=== PATIENT | female | born 1995 | race Hispanic/Latino ===

== ENCOUNTER 2016-07-10 15:32 | Emergency (ER) | payer MEDICAID ==
[2016-07-10 15:57] VITALS: TEMP 98
[2016-07-10] MEDS ORDERED: Sodium Chloride 0.9% 1,000 ML IV ONE (16:23)
[2016-07-10] MEDS ORDERED: Sodium Chloride 0.9% 1,000 ML ONE (16:46)
[2016-07-10 17:21] LABS: RBC URINE 7442 /hpf (0-3); URINE BACTERIA RARE (<OCC); URINE BILIRUBIN NEGATIVE (NEGATIVE); URINE BLOOD 3+ (NEGATIVE); URINE COLOR Amber (YELLOW); URINE GLUCOSE (UA) NORMAL (Normal); URINE KETONE 1+ mg/dL (NEGATIVE); URINE LEUKOCYTE ESTERASE 1+ Leu/uL (Negative); URINE PROTEIN 2+ mg/dL (NEGATIVE); URINE UROBILINOGEN NORMAL mg/dL (0.2-1.0); WBC URINE 12 /hpf (0-5)
[2016-07-10 17:25] LABS: BASO # 0.1 K/uL (0.0-0.2); BASO % 0.8 % (0.0-2.0); EOS # 0.1 K/uL (0.0-0.7); EOS % 1.3 % (0.0-4.0); HEMATOCRIT 36.7 % (34.0-47.0); LYMPH # 3.3 K/uL (1.0-4.3); LYMPH % 36.5 % (20.0-40.0); MEAN CELL VOLUME 70.7 fL (81.0-99.0); MEAN CORPUSCULAR HEMOGLOBIN 22.5 pg (27.0-31.0); MEAN CORPUSCULAR HGB CONC 31.8 g/dL (33.0-37.0); MEAN PLATELET VOLUME 10.1 fL (7.2-11.7); MONO # 0.6 K/uL (0.0-0.8); MONO % 6.9 % (0.0-10.0); RED CELL DISTRIBUTION WIDTH 16.7 % (11.5-14.5)
[2016-07-10 17:32] LABS: INR 1.1
--- NOTE | 2016-07-10 18:02 | C.PDOC ---
History Of Present Illness Pt is a 21 yr old female with PMHx of obesity and asthma, with a gastric sleeve placement in February 2016, presents to the ED with complaints of LUQ pain for 1 day. Patient states "it feels like there is a bump" in her LUQ of her abdomen. Patient states the pain is constant and feels like pressure. Patient denies fever, chills, chest pain, SOB, nausea, vomiting, diarrhea, dysuria, incontinence, weakness or numbness. Her gastric sleeve surgery was not done in the [facility] system. PMD: Dr. En Almanza Time Seen by Provider: 07/10/16 16:12 Chief Complaint (Nursing): Abdominal Pain History Per: Patient History/Exam Limitations: no limitations Onset/Duration Of Symptoms: Days (1), Persistent Current Symptoms Are (Timing): Still Present Location Of Pain/Discomfort: LUQ Past Medical History Reviewed: Historical Data, Nursing Documentation, Vital Signs Vital Signs: Last Vital Signs Temp 98 F 07/10/16 19:07 Pulse 61 07/10/16 19:07 Resp 20 07/10/16 19:07 BP 115/79 07/10/16 19:07 Pulse Ox 98 07/10/16 19:07 - Medical History PMH: Anemia, Asthma, HTN, Hypercholesterolemia, Pancreatitis Other PMH: Obesity - [facility] Procedures APPLICATION OF SPLINT (09/06/14) Family History: States: Diabetes - Social History Hx Tobacco Use: Yes Hx Alcohol Use: No Hx Substance Use: No - Immunization History Hx Tetanus Toxoid Vaccination: No Hx Influenza Vaccination: Yes Hx Pneumococcal Vaccination: No Review Of Systems Except As Marked, All Systems Reviewed And Found Negative. Constitutional: Negative for: Fever, Chills Cardiovascular: Negative for: Chest Pain Respiratory: Negative for: Shortness of Breath Gastrointestinal: Positive for: Abdominal Pain (LUQ). Negative for: Nausea, Vomiting, Diarrhea Genitourinary: Negative for: Dysuria, Incontinence Neurological: Negative for: Weakness, Numbness Physical Exam - Physical Exam Appears: Well, Non-toxic, No Acute Distress Skin: Warm, Dry, No Rash Head: Atraumatic, Normacephalic Eye(s): bilateral: Normal Inspection, EOMI Ear(s): Bilateral: Normal Nose: Normal Oral Mucosa: Moist Tongue: Normal Appearing Lips: Normal Appearing Teeth: Normal Dentition Throat: Normal Neck: Normal, Normal ROM, Supple Chest: Symmetrical, No Tenderness Cardiovascular: Rhythm Regular, No Murmur Respiratory: Normal Breath Sounds, No Rales, No Rhonchi, No Stridor, No Wheezing Gastrointestinal/Abdominal: Bowel Sounds, Soft, Tenderness (Mild LUQ tenderness) , No Guarding, No Rebound Extremity: Normal ROM, No Swelling Neurological/Psych: Oriented x3, Normal Speech, Normal Motor ED Course And Treatment - Laboratory Results Result Diagrams: 07/10/16 17:12 07/10/16 17:12 O2 Sat by Pulse Oximetry: 100 - CT Scan/US CT - Bariatric Chest Other Rad Studies (CT/US): Read By Radiologist, Radiology Report Reviewed CT/US Interpretation: PROCEDURE: CT Chest without contrast. HISTORY: LUQ pain ; please assess gastric band. COMPARISON: None. TECHNIQUE: Contiguous axial images were obtained through the chest without intravenous contrast enhancement. Sagittal and coronal reconstructions were performed. . Radiation dose (DLP): 515 mGy-cm. This CT exam was performed using one or more of the following dose reduction techniques: Automated exposure control, adjustment of the mA and/or kV according to patient size, and/or use of iterative reconstruction technique. FINDINGS: LUNGS: Clear lungs. Visualized airway clear. MEDIASTINUM: Unremarkable thoracic aorta. No aneurysm. Normal sized heart. Main pulmonary artery unremarkable. No vascular congestion. No lymphadenopathy. PLEURA: No pleural fluid. No pneumothorax. BONES: No fracture. No destructive lesion. UPPER ABDOMEN: The esophagus is mildly dilated. A suture line is seen along greater curvature of the stomach most consistent with a gastric sleeve type operation. There is no evidence of a lap band. There is no evidence of perforation. OTHER FINDINGS: None. IMPRESSION : No acute findings. No evidence of perforation Medical Decision Making Medical Decision Making: INITIAL IMPRESSION: Possible gastric sleeve complication/pathology INITIAL PLAN: * CT - Bariatric Chest to assess the gastric sleeve * CBC * HCG Urine * Urinalysis * Pepcid IVP * Sodium Chloride IV Progress note: 6:30 PM-CT shows no acute pathology. Pt feels better. Will d/c home. Disposition - Disposition Disposition: HOME/ ROUTINE Disposition Time: 18:52 Condition: IMPROVED Additional Instructions: Ms. Serrano, thank you for letting us take care of you today. Return to the ER if your symptoms worsen, or if any problems. Take the medication listed below as prescribed. Follow up with your bariatric surgeon this Thursday (as previously scheduled). Prescriptions: Ranitidine HCl [Zantac] 1 tab PO BID #40 tablet Instructions: Peptic Ulcer (ED) Forms: General Discharge Instructions Print Language: AMHARIC - POA Present On Arrival: None - Clinical Impression Clinical Impression: Abdominal wall pain - Scribe Statement The provider has reviewed the documentation as recorded by the Robson Rodriguez Provider Attestation: All medical record entries made by the Robson were at my direction and personally dictated by me. I have reviewed the chart and agree that the record accurately reflects my personal performance of the history, physical exam, medical decision making, and the department course for this patient. I have also personally directed, reviewed, and agree with the discharge instructions and disposition.
[2016-07-10 18:11] LABS: CHLORIDE 103 mmol/L (98-107)
[2016-07-10 18:12] LABS: SODIUM 140 mmol/L (132-148)
[2016-07-10 18:14] LABS: ALB/GLOB RATIO 1.4 (1.0-2.1); ALKALINE PHOSPHATASE 66 U/L (38-126); AST/SGOT 20 U/L (14-36); BILIRUBIN,TOTAL 1.1 mg/dL (0.2-1.3); BLOOD UREA NITROGEN 8 mg/dL (7-17); CARBON DIOXIDE 22 mmol/L (22-30); GFR AFRICAN-AMERICAN > 60; TOTAL PROTEIN 8.5 g/dL (6.3-8.3)
[2016-07-10 18:15] LABS: ALT/SGPT 13 U/L (9-52); CALCIUM 9.7 mg/dl (8.6-10.4); GLUCOSE,RANDOM 80 mg/dL (65-105)
--- NOTE | 2016-07-10 18:39 | CT ---
PROCEDURE: CT Chest without contrast HISTORY: LUQ pain; please assess gastric band COMPARISON: None. TECHNIQUE: Contiguous axial images were obtained through the chest without intravenous contrast enhancement. Sagittal and coronal reconstructions were performed. Radiation dose (DLP): 515 mGy-cm. This CT exam was performed using one or more of the following dose reduction techniques: Automated exposure control, adjustment of the mA and/or kV according to patient size, and/or use of iterative reconstruction technique. FINDINGS: LUNGS: Clear lungs. Visualized airway clear. MEDIASTINUM: Unremarkable thoracic aorta. No aneurysm. Normal sized heart. Main pulmonary artery unremarkable. No vascular congestion. No lymphadenopathy. PLEURA: No pleural fluid. No pneumothorax. BONES: No fracture. No destructive lesion. UPPER ABDOMEN: The esophagus is mildly dilated. A suture line is seen along greater curvature of the stomach most consistent with a gastric sleeve type operation. There is no evidence of a lap band. There is no evidence of perforation OTHER FINDINGS: None. IMPRESSION: No acute findings. No evidence of perforation
[2016-07-10 19:08] VITALS: BP 115/79; PULSE 61; RESP 20
[2016-07-16 17:56] VITALS: O2SAT 100
== END 2016-07-10 19:06 | disposition home or self-care (01) ==
LOC: C.ER 15:32
DX: R10.12 Left upper quadrant pain (principal)
CPT/HCPCS: 71250; 80053; 81001; 83690; 84703; 85025; 85610; 85730; 96374; 99284; J7040

== ENCOUNTER 2016-08-04 18:31 | Emergency (ER) | payer MEDICAID ==
[2016-08-04 18:42] VITALS: TEMP 98.1
--- NOTE | 2016-08-04 20:22 | C.PDOC ---
History Of Present Illness A 21 year old female presents to the emergency room with complaints of rashes to the bilateral arms, legs, and abdomen for the past week. Patient also notes intermittent hives. Patient reports that she has tried OTC cream with no relief. Patient denies any non-allergens, new products, or new medications. Patient denies shortness of breath, lip swelling, tongue swelling, difficulty swallowing, fever, nausea, vomiting, diarrhea, or any other complaints. Time Seen by Provider: 08/04/16 19:20 Chief Complaint (Nursing): Abnormal Skin Integrity History Per: Patient History/Exam Limitations: no limitations Onset/Duration Of Symptoms: Other (1 week) Current Symptoms Are (Timing): Still Present Location Of Injury: Right: Abdomen, Arm, Leg, Left: Abdomen, Arm, Leg Quality Of Symptoms: denies: Painful, Itching, Swollen Severity: Mild Recent travel outside of the [place]: No Past Medical History Reviewed: Historical Data, Nursing Documentation, Vital Signs Vital Signs: Last Vital Signs Temp 98.1 F 08/04/16 18:40 Pulse 71 08/04/16 20:23 Resp 18 08/04/16 20:23 BP 124/72 08/04/16 20:23 Pulse Ox 97 08/04/16 22:02 - Medical History PMH: Anemia, Asthma, HTN, Hypercholesterolemia, Pancreatitis Denies: Chronic Kidney Disease - [facility] Procedures APPLICATION OF SPLINT (09/06/14) Family History: States: Unknown Family Hx, Diabetes - Social History Hx Tobacco Use: Yes Hx Alcohol Use: No Hx Substance Use: No - Immunization History Hx Tetanus Toxoid Vaccination: No Hx Influenza Vaccination: Yes Hx Pneumococcal Vaccination: No Review Of Systems Except As Marked, All Systems Reviewed And Found Negative. Constitutional: Negative for: Fever, Chills ENT: Negative for: Throat Pain, Throat Swelling, Other (Difficulty swallowing; Lip swelling) Respiratory: Negative for: Shortness of Breath Gastrointestinal: Negative for: Nausea, Vomiting, Diarrhea Skin: Positive for: Rash (Bilateral arms, legs, and abdomen), Other ( Intermittent hives) Physical Exam - Physical Exam Appears: Well, Non-toxic Skin: Rash (Scattered patchy erythematous maculopapular rash to the inner upper arms, inner thighs, and left lower abdomen. Mild scattered hives.), No Other ( No vesicular lesions, warmth, or pustules.) Head: Normacephalic Eye(s): bilateral: Normal Inspection, PERRL, EOMI Ear(s): Bilateral: Normal Oral Mucosa: Moist, No Drooling Tongue: Normal Appearing, No Swelling Lips: Normal Appearing, No Swelling Throat: Normal, No Erythema, No Exudate Neck: Normal ROM, Supple Cardiovascular: Rhythm Regular Respiratory: Normal Breath Sounds, No Wheezing Extremity: Normal ROM Neurological/Psych: Oriented x3, Normal Speech, Normal Cognition Gait: Steady ED Course And Treatment O2 Sat by Pulse Oximetry: 97 Pulse Ox Interpretation: Normal Reassessment Condition: Improved (after meds, will follow up with PMD) Medical Decision Making Medical Decision Making: Impression: A 21 year old female with rashes to the bilateral arms, legs, and abdomen. Scattered patchy erythematous maculopapular rashes to the inner upper arms, inner thighs, and left lower abdomen noted on examination. Plan: -- Benadryl, Pepcid, & Prenisolone Progress Notes: Patient was given medications. On reevaluation, patient is resting comfortably, tolerating PO, has no shortness of breath, has no intra-oral swelling, no stridor. Patient notes that pruritus has improved. Patient was advised to avoid potential allergens, and to follow up with physician in 1-2 days. Disposition Counseled Patient/Family Regarding: Diagnosis, Need For Followup - Disposition Disposition: HOME/ ROUTINE Disposition Time: 20:24 Condition: STABLE Additional Instructions: Please follow up with PMD Take meds as directed Return to ER if worse Prescriptions: Cetirizine HCl [Zyrtec] 10 mg PO DAILY #20 capsule Famotidine [Pepcid] 20 mg PO DAILY #10 tab predniSONE [Prednisone] 40 mg PO DAILY #10 tab Instructions: Allergies (ED) Forms: Work Excuse - Clinical Impression Clinical Impression: Contact allergic reaction - Scribe Statement The provider has reviewed the documentation as recorded by the Robson Khalil Provider Scribe Attestation: All medical record entries made by the Janeneibyumiko were at my direction and personally dictated by me. I have reviewed the chart and agree that the record accurately reflects my personal performance of the history, physical exam, medical decision making, and the department course for this patient. I have also personally directed, reviewed, and agree with the discharge instructions and disposition.
[2016-08-04 20:24] VITALS: BP 124/72; PULSE 71; RESP 18
[2016-08-04 20:25] VITALS: O2SAT 97
== END 2016-08-04 20:29 | disposition home or self-care (01) ==
LOC: C.ER 18:31
DX: L23.9 Allergic contact dermatitis, unspecified cause (principal)

== ENCOUNTER 2017-05-25 22:27 | Emergency (ER) | payer MEDICAID ==
[2017-05-25 23:36] VITALS: BP 111/70; PULSE 73; TEMP 97.5; O2SAT 100
--- NOTE | 2017-05-26 00:40 | C.PDOC ---
History Of Present Illness 22 year old female presents to the ED for evaluation of flu like symptoms x2 days. Patient complains of body aches, headaches, fevers, cough, and sore throat. No vomiting or diarrhea. No recent travel. No other acute complaints at this time. pt states was exposed to family member with the flu 2 days prior to onset of her symptoms. . Time Seen by Provider: 05/25/17 23:39 Chief Complaint (Nursing): Flu-like Symptoms History Per: Patient History/Exam Limitations: no limitations Onset/Duration Of Symptoms: Days Current Symptoms Are (Timing): Still Present Location Of Pain: Throat, Diffuse Myalgias, Headache Associated Symptoms: Fever, Sore Throat, Cough, Myalgias, Nasal Congestion. denies: Vomiting, Diarrhea Recent travel outside of the [place]: No Past Medical History Reviewed: Historical Data, Nursing Documentation, Vital Signs Vital Signs: Last Vital Signs Temp 97.5 F L 05/25/17 23:33 Pulse 73 05/25/17 23:33 Resp 20 05/26/17 00:52 BP 111/70 05/25/17 23:33 Pulse Ox 100 05/26/17 03:25 - Medical History PMH: Anemia, Asthma, HTN, Hypercholesterolemia, Pancreatitis Denies: Chronic Kidney Disease - [facility] Procedures APPLICATION OF SPLINT (09/06/14) Family History: States: Unknown Family Hx, Diabetes - Social History Hx Tobacco Use: Yes Hx Alcohol Use: Yes Hx Substance Use: No - Immunization History Hx Tetanus Toxoid Vaccination: No Hx Influenza Vaccination: Yes Hx Pneumococcal Vaccination: No Review Of Systems Except As Marked, All Systems Reviewed And Found Negative. Constitutional: Positive for: Fever. Negative for: Chills ENT: Positive for: Nose Congestion, Throat Pain. Negative for: Ear Pain Cardiovascular: Negative for: Chest Pain Respiratory: Positive for: Cough. Negative for: Shortness of Breath Gastrointestinal: Negative for: Nausea, Vomiting, Abdominal Pain, Diarrhea Skin: Negative for: Rash Neurological: Positive for: Headache Physical Exam - Physical Exam Appears: Well, No Acute Distress Skin: Normal Color, Warm, Dry Head: Atraumatic, Normacephalic Eye(s): bilateral: Normal Inspection, PERRL, EOMI Nose: Normal Oral Mucosa: Moist Tongue: Normal Appearing Lips: Normal Appearing Throat: Normal Neck: Normal, Normal ROM, Supple Cardiovascular: Rhythm Regular Respiratory: Normal Breath Sounds Gastrointestinal/Abdominal: Soft, No Tenderness Back: Normal Inspection Extremity: Normal ROM, No Deformity Neurological/Psych: Oriented x3, Normal Speech ED Course And Treatment O2 Sat by Pulse Oximetry: 100 Pulse Ox Interpretation: Normal Progress Note: Pt in NAD, VSS. Tretament plan d/w pt who agreed with plan. Retur precautions als discussed and understoo by pt Medical Decision Making Medical Decision Making: =Impression: influenza, viral illness Will discharge patient home on tamiflu. Disposition Counseled Patient/Family Regarding: Diagnosis, Need For Followup, Rx Given - Disposition Referrals: Shaik Cerrato MD [Staff Provider] - Disposition: HOME/ ROUTINE Disposition Time: 00:38 Condition: STABLE Additional Instructions: Increase PO fluids Bed rest Take meds as directed for fever and pain Return to ER if worse Prescriptions: Ibuprofen [Motrin] 600 mg PO Q6H #30 tab Oseltamivir [Tamiflu] 75 mg PO BID #10 cap Forms: [facility] (Persian), Work Excuse - Clinical Impression Clinical Impression: Influenza-like illness - Scribe Statement The provider has reviewed the documentation as recorded by the Scribe The provider has reviewed the documentation as recorded by the Scribe (Edvin Brewster)
[2017-05-26 00:52] VITALS: RESP 20
== END 2017-05-26 00:52 | disposition home or self-care (01) ==
LOC: C.ER 22:27
DX: J11.1 Influenza due to unidentified influenza virus with other respiratory manifestations (principal); F17.210 Nicotine dependence, cigarettes, uncomplicated

== ENCOUNTER 2017-08-31 20:45 | Emergency (ER) | payer MEDICAID ==
[2017-08-31 20:55] VITALS: BP 107/72; PULSE 77; RESP 20; TEMP 98.2; O2SAT 98
[2017-08-31] MEDS ORDERED: Sodium Chloride 0.9% 1,000 ML IV ONE (21:27)
[2017-08-31 21:41] LABS: BASO % 0.5 % (0.0-2.0); EOS # 0.1 K/uL (0.0-0.7); EOS % 1.1 % (0.0-4.0); HEMOGLOBIN 10.4 g/dL (11.0-16.0); LYMPH # 3.1 K/uL (1.0-4.3); LYMPH % 35.4 % (20.0-40.0); MEAN CELL VOLUME 69.1 fL (81.0-99.0); MEAN CORPUSCULAR HEMOGLOBIN 21.9 pg (27.0-31.0); MEAN CORPUSCULAR HGB CONC 31.6 g/dL (33.0-37.0); MEAN PLATELET VOLUME 10.1 fL (7.2-11.7); MONO # 0.6 K/uL (0.0-0.8); MONO % 7.2 % (0.0-10.0); NEUT # 4.9 K/uL (1.8-7.0); NEUT % 55.8 % (50.0-75.0); RBC 4.76 Mil/uL (3.80-5.20); RED CELL DISTRIBUTION WIDTH 16.1 % (11.5-14.5); WHITE BLOOD COUNT 8.8 K/uL (4.8-10.8)
[2017-08-31 21:57] LABS: ALB/GLOB RATIO 1.2 (1.0-2.1); ALBUMIN 4.3 g/dL (3.5-5.0); ALT/SGPT 18 U/L (9-52); AST/SGOT 19 U/L (14-36); BLOOD UREA NITROGEN 16 mg/dL (7-17); CALCIUM 9.5 mg/dl (8.6-10.4); GFR AFRICAN-AMERICAN > 60; GFR NON-AFRICAN AMERICAN > 60
--- NOTE | 2017-08-31 23:10 | C.PDOC ---
History Of Present Illness 22 year old female presents to the ED c/o occasional right arm numbness. Patient states her symptoms worsens with movement of her arm mostly when it is above her shoulder. Patient denies CP, SOB, fever, chills, neck trauma, injury, fall, weakness. Chief Complaint (Nursing): Chest Pain History Per: Patient History/Exam Limitations: no limitations Onset/Duration Of Symptoms: Days Current Symptoms Are (Timing): Still Present Quality: "Pain" Modifying Factors: None Exacerbating Factors: None Alleviating Factors: None Recent travel outside of the [place]: No Additional History Per: Patient Past Medical History Reviewed: Historical Data, Nursing Documentation, Vital Signs Vital Signs: Last Vital Signs Temp 98.2 F 08/31/17 20:48 Pulse 77 08/31/17 20:48 Resp 20 08/31/17 20:48 BP 107/72 08/31/17 20:48 Pulse Ox 98 08/31/17 23:12 - Medical History PMH: Anemia, Asthma, HTN, Hypercholesterolemia, Pancreatitis Denies: Chronic Kidney Disease Surgical History: No Surg Hx - [facility] Procedures APPLICATION OF SPLINT (09/06/14) Family History: States: Unknown Family Hx, Diabetes - Social History Hx Tobacco Use: Yes Hx Alcohol Use: Yes Hx Substance Use: No - Immunization History Hx Tetanus Toxoid Vaccination: No Hx Influenza Vaccination: Yes Hx Pneumococcal Vaccination: No Review Of Systems Constitutional: Negative for: Fever, Chills Cardiovascular: Negative for: Chest Pain Respiratory: Negative for: Cough, Shortness of Breath Gastrointestinal: Negative for: Nausea, Vomiting Skin: Negative for: Rash Neurological: Positive for: Numbness. Negative for: Weakness Physical Exam - Physical Exam Appears: Non-toxic, No Acute Distress Skin: Normal Color, Warm, Dry Head: Atraumatic, Normacephalic Eye(s): bilateral: Normal Inspection Oral Mucosa: Moist Neck: Normal ROM, No Midline Cervical Tenderness, Supple Chest: Symmetrical Cardiovascular: Rhythm Regular Respiratory: Normal Breath Sounds, No Rales, No Rhonchi, No Wheezing Gastrointestinal/Abdominal: Soft, No Tenderness, No Guarding, No Rebound Extremity: Normal ROM, No Tenderness, Capillary Refill (< 2 seconds), No Swelling Pulses: Left Radial: Normal, Right Radial: Normal Neurological/Psych: Oriented x3, Normal Speech, Normal Motor, Normal Sensation Gait: Steady ED Course And Treatment - Laboratory Results Result Diagrams: 08/31/17 21:36 08/31/17 21:36 ECG: Interpreted By Me, Viewed By Me ECG Rhythm: Sinus Rhythm ECG Interpretation: Normal, No Acute Changes Rate From EC (BPM) O2 Sat by Pulse Oximetry: 98 (On RA) Pulse Ox Interpretation: Normal Medical Decision Making Medical Decision Making: Plan: * EKG * LAbs * IV fluids Patient was advised to follow up with her PMD, and also to take some iron supplements for her iron deficiency. Disposition - Disposition Referrals: Shaik Cerrato MD [Staff Provider] - Disposition: HOME/ ROUTINE Disposition Time: 22:50 Condition: GOOD Additional Instructions: Thank you for letting us take care of you today. The emergency medical care you received today was directed at your acute symptoms. If you were prescribed any medication, please fill it and take as directed. It may take several days for your symptoms to resolve. Return to the Emergency Department if your symptoms worsen, do not improve, or if you have any other problems. Please contact your doctor or call one of the physicians/clinics you have been referred to that are listed on the Patient Visit Information form that is included in your discharge packet. Bring any paperwork you were given at discharge with you along with any medications you are taking to your follow up visit. Our treatment cannot replace ongoing medical care by a primary care provider (PCP) outside of the emergency department. Thank you for allowing the [facility] team to be part of your care today. Start taking over the counter iron supplements as directed. Follow up with your primary care doctor in 3-4 days for re-evaluation and further management. Instructions: Anemia Caused by Low Iron, Adult (DC) Forms: [employer] (Slovak), Work Excuse - Clinical Impression Clinical Impression: Iron deficiency anemia - Scribe Statement The provider has reviewed the documentation as recorded by the Scribe Dandre Rajput All medical record entries made by the Scribe were at my direction and personally dictated by me. I have reviewed the chart and agree that the record accurately reflects my personal performance of the history, physical exam, medical decision making, and the department course for this patient. I have also personally directed, reviewed, and agree with the discharge instructions and disposition.
--- NOTE | 2017-09-01 11:32 | CARD ---
APPROVED REPORT EKG Measurement Heart [id number] <Conclusion> Normal sinus rhythm Normal ECG
== END 2017-08-31 22:38 | disposition home or self-care (01) ==
LOC: C.ER 20:45
DX: D50.9 Iron deficiency anemia, unspecified (principal)
CPT/HCPCS: 80053; 84484; 85025; 99284; J7030

== ENCOUNTER 2017-09-04 21:07 | Emergency (ER) | payer MEDICAID ==
[2017-09-04 21:45] LABS: SQUAMOUS EPITHIAL 3 /hpf (0-5); URINE BILIRUBIN NEGATIVE (NEGATIVE); URINE BLOOD NEGATIVE (NEGATIVE); URINE CLARITY Clear (Clear); URINE COLOR Straw (YELLOW); URINE GLUCOSE (UA) NORMAL (Normal); URINE PROTEIN NEGATIVE (NEGATIVE); URINE UROBILINOGEN NORMAL mg/dL (0.2-1.0)
[2017-09-04 21:47] LABS: HCG,QUALITATIVE URINE NEGATIVE (NEGATIVE)
[2017-09-04 21:51] LABS: URINE BACTERIA OCC (<OCC)
[2017-09-04 21:52] LABS: URINE LEUKOCYTE ESTERASE 1+ Leu/uL (Negative)
[2017-09-04] MEDS ORDERED: Sodium Chloride 0.9% 1,000 ML IV ONE (22:07)
--- NOTE | 2017-09-04 22:07 | C.PDOC ---
History Of Present Illness pt presents with nausea, vomiting and abdominal pain , worsening over the last 4 days. Has history of gastric sleeve. No f/c. Decreased po intake. Actively vomiting in the ED Time Seen by Provider: 09/04/17 22:07 Chief Complaint (Nursing): Abdominal Pain History Per: Patient History/Exam Limitations: no limitations Onset/Duration Of Symptoms: Days Current Symptoms Are (Timing): Worse Context: Other Severity: Moderate Pain Scale Rating Of: 5 Location Of Pain/Discomfort: Diffuse Radiation Of Pain To:: None Quality Of Discomfort: Sharp, Cramping Associated Symptoms: Nausea, Vomiting. denies: Fever, Chills Exacerbating Factors: Food Alleviating Factors: None Last Bowel Movement: Today Recent travel outside of the [place]: No Additional History Per: Family Abnormal Vaginal Bleeding: No Past Medical History Reviewed: Historical Data, Nursing Documentation, Vital Signs Vital Signs: Last Vital Signs Temp 98.3 F 09/04/17 21:09 Pulse 58 L 09/04/17 21:09 Resp 16 09/04/17 21:09 BP 96/58 L 09/04/17 21:09 Pulse Ox 100 09/04/17 22:36 - Medical History PMH: Anemia, Asthma, Pancreatitis Denies: HTN, Hypercholesterolemia, Chronic Kidney Disease - [facility] Procedures APPLICATION OF SPLINT (09/06/14) Family History: States: No Known Family Hx, Diabetes - Social History Hx Tobacco Use: Yes Hx Alcohol Use: Yes Hx Substance Use: No - Immunization History Hx Tetanus Toxoid Vaccination: No Hx Influenza Vaccination: Yes Hx Pneumococcal Vaccination: No Review Of Systems Constitutional: Negative for: Fever, Chills Eyes: Negative for: Vision Change ENT: Negative for: Throat Pain Cardiovascular: Negative for: Chest Pain Respiratory: Negative for: Shortness of Breath Gastrointestinal: Positive for: Nausea, Vomiting, Abdominal Pain. Negative for : Constipation Genitourinary: Negative for: Dysuria Musculoskeletal: Negative for: Back Pain Skin: Negative for: Rash Neurological: Negative for: Weakness Psych: Negative for: Anxiety Physical Exam - Physical Exam Appears: Non-toxic, No Acute Distress Skin: Warm, Dry Head: Normacephalic Eye(s): bilateral: Normal Inspection Oral Mucosa: Moist Neck: Supple Chest: Symmetrical Cardiovascular: Rhythm Regular Respiratory: No Rales, No Rhonchi, No Wheezing Gastrointestinal/Abdominal: Soft, Tenderness, No Distention, No Guarding Back: No CVA Tenderness Extremity: Normal ROM Extremity: Bilateral: Atraumatic Pulses: Left Dorsalis Pedis: Normal, Right Dorsalis Pedis: Normal Neurological/Psych: Oriented x3, Normal Speech, Normal Cognition Gait: Steady ED Course And Treatment - Laboratory Results Result Diagrams: 09/04/17 22:21 09/04/17 22:21 O2 Sat by Pulse Oximetry: 100 Pulse Ox Interpretation: Normal Disposition Counseled Patient/Family Regarding: Studies Performed, Diagnosis, Need For Followup, Rx Given - Disposition Referrals: Shaik Cerrato MD [Staff Provider] - Disposition: HOME/ ROUTINE Disposition Time: 22:07 Condition: FAIR Additional Instructions: Please return if symptoms recur, Prescriptions: Ondansetron ODT [Zofran ODT] 1 odt PO BID PRN #6 odt PRN Reason: Nausea/Vomiting Instructions: Nausea and Vomiting, Adult (DC) Forms: [email or web address] [employer] (Chinese) - Clinical Impression Clinical Impression: Abdominal pain, Nausea & vomiting
[2017-09-04] MEDS ORDERED: Morphine 4 MG/ML VIAL ONE (22:21)
[2017-09-04] MEDS ORDERED: Sodium Chloride 0.9% 1,000 ML ONE (22:21)
[2017-09-04 22:31] LABS: BASO # 0.1 K/uL (0.0-0.2); BASO % 0.6 % (0.0-2.0); EOS # 0.1 K/uL (0.0-0.7); EOS % 1.5 % (0.0-4.0); HEMOGLOBIN 10.8 g/dL (11.0-16.0); LYMPH # 3.4 K/uL (1.0-4.3); LYMPH % 37.5 % (20.0-40.0); MEAN CELL VOLUME 68.2 fL (81.0-99.0); MEAN CORPUSCULAR HEMOGLOBIN 21.9 pg (27.0-31.0); MEAN CORPUSCULAR HGB CONC 32.1 g/dL (33.0-37.0); MEAN PLATELET VOLUME 10.6 fL (7.2-11.7); MONO # 0.7 K/uL (0.0-0.8); MONO % 7.4 % (0.0-10.0); NEUT # 4.7 K/uL (1.8-7.0); NRBC % 0.1 % (0.0-2.0); RBC 4.93 Mil/uL (3.80-5.20); WHITE BLOOD COUNT 8.9 K/uL (4.8-10.8)
[2017-09-04 22:45] LABS: ALB/GLOB RATIO 1.2 (1.0-2.1); ALBUMIN 4.5 g/dL (3.5-5.0); ALT/SGPT 18 U/L (9-52); AST/SGOT 30 U/L (14-36); BLOOD UREA NITROGEN 18 mg/dL (7-17); CALCIUM 10.1 mg/dl (8.6-10.4); GFR AFRICAN-AMERICAN > 60; GFR NON-AFRICAN AMERICAN > 60; LIPASE 212 U/L (23-300)
[2017-09-04] MEDS ORDERED: Iodixanol 320 MG/ML 100 ML BOTTLE IV ONE (23:27)
--- NOTE | 2017-09-05 00:19 | CT ---
EXAM: CT Abdomen and Pelvis With Intravenous Contrast EXAM DATE/TIME: 09/04/2017 11:08 PM CLINICAL HISTORY: 22 years old, female; Pain; Abdominal pain; Periumbilical; Prior surgery; Surgery date: 6+ months; Surgery type: Gastric sleeve; Additional info: Abd pain, n/v, HX of gastric sleeve TECHNIQUE: Axial computed tomography images of the abdomen and pelvis with intravenous contrast. All CT scans at this facility use one or more dose reduction techniques, viz.: automated exposure control; ma/kV adjustment per patient size (including targeted exams where dose is matched to indication; i.e. head); or iterative reconstruction technique. Coronal and sagittal reformatted images were created and reviewed. CONTRAST: 100 mL of visipaque 320 administered intravenously. COMPARISON: CT - ABD PELVIS IV CONTRAST ONLY 2013-10-11 00:03 FINDINGS: Lower thorax: Heart size is normal. Lung bases are clear ABDOMEN: Liver: There is fatty infiltration of the liver. There is periportal edema. Gallbladder and bile ducts: unremarkable Pancreas: unremarkable Spleen: unremarkable Adrenals: unremarkable Kidneys and ureters: unremarkable Stomach and bowel: Postsurgical changes of gastric sleeve. Bowel rotation is normal. There is fluid and air throughout the small bowel. There is no small bowel obstruction. Ileocecal region is unremarkable. Appendix and terminal ileum are unremarkable.There is moderate stool in the colon. PELVIS: Appendix: See stomach and bowel Bladder: unremarkable Reproductive: Uterus and adnexa are unremarkable. There is a corpus luteum in the left adnexa. ABDOMEN and PELVIS: Intraperitoneal space: There is trace free fluid.There is no free air. Bones/joints: There are no acute osseous abnormalities. Soft tissues: unremarkable Vasculature: Vascular structures are unremarkable. Lymph nodes: There is shotty adenopathy. IMPRESSION: No acute solid visceral or bowel abnormality; prior gastric sleeve; left ovarian corpus luteum; trace free fluid, physiologic versus recent cyst rupture
[2017-09-05 01:18] VITALS: BP 98/61; PULSE 57; RESP 20; TEMP 98.7; O2SAT 99
== END 2017-09-05 01:18 | disposition home or self-care (01) ==
LOC: C.ER 21:07
DX: R10.9 Unspecified abdominal pain (principal); R11.2 Nausea with vomiting, unspecified
CPT/HCPCS: 74177; 80053; 81001; 83690; 84703; 85025; 96361; 96374; 96375; 99284; C9113; J2270; J2405; J7030; Q9967

== ENCOUNTER 2017-12-23 18:20 | Emergency (ER) | payer MEDICAID ==
[2017-12-23 18:31] VITALS: BP 109/73; PULSE 68; RESP 20; TEMP 98.7; O2SAT 98
--- NOTE | 2017-12-23 19:54 | C.PDOC ---
History Of Present Illness 22 year old patient presents to ED for evaluation of productive cough with yellow sputum. Patient also complains of congestion, sore throat, headache, body pain, and rhinorrhea. Denies fever, nausea, vomiting, and other associated symptoms. Time Seen by Provider: 12/23/17 18:41 Chief Complaint (Nursing): Cough, Cold, Congestion History Per: Patient History/Exam Limitations: no limitations Onset/Duration Of Symptoms: Days Current Symptoms Are (Timing): Still Present Past Medical History Reviewed: Historical Data, Nursing Documentation, Vital Signs Vital Signs: Last Vital Signs Temp 98.7 F 12/23/17 18:31 Pulse 68 12/23/17 18:31 Resp 20 12/23/17 20:04 BP 109/73 12/23/17 18:31 Pulse Ox 98 12/23/17 22:26 - Medical History PMH: Anemia, Asthma, Pancreatitis Denies: HTN, Hypercholesterolemia, Chronic Kidney Disease - [facility] Procedures APPLICATION OF SPLINT (09/06/14) Family History: States: Unknown Family Hx, Diabetes - Social History Hx Tobacco Use: Yes Hx Alcohol Use: Yes Hx Substance Use: No - Immunization History Hx Tetanus Toxoid Vaccination: No Hx Influenza Vaccination: Yes Hx Pneumococcal Vaccination: No Review Of Systems Except As Marked, All Systems Reviewed And Found Negative. Constitutional: Negative for: Fever, Chills ENT: Positive for: Nose Discharge, Nose Congestion, Throat Pain (sore throat) Respiratory: Positive for: Cough (productive cough with yellow sputum ) Gastrointestinal: Negative for: Nausea, Vomiting Musculoskeletal: Positive for: Other (body pain) Neurological: Positive for: Headache Physical Exam - Physical Exam Appears: Non-toxic, No Acute Distress Skin: Warm, Dry Head: Atraumatic, Normacephalic Eye(s): bilateral: Normal Inspection, PERRL, EOMI Ear(s): Bilateral: Normal Oral Mucosa: Moist Neck: Normal ROM, Supple Chest: Symmetrical Cardiovascular: Rhythm Regular Respiratory: Other (NARD) Gastrointestinal/Abdominal: Normal Exam, Soft, No Tenderness Extremity: Normal ROM, No Tenderness Neurological/Psych: Oriented x3, Normal Speech Gait: Steady ED Course And Treatment O2 Sat by Pulse Oximetry: 98 (RA) Pulse Ox Interpretation: Normal - Other Rad Chest X-ray X-Ray: Viewed By Me Progress Note: Chest X-ray. Given Tylenol and Azithromycin. Chest X-ray reviewed by me, appears normal. Patient stable for discharge home. Prescribed Flonase, Motrin, Benzonatate. Disposition - Disposition Referrals: Shaik Cerrato MD [Staff Provider] - Disposition: HOME/ ROUTINE Disposition Time: 19:52 Condition: STABLE Additional Instructions: Follow up with your PMD within 1-2 days. Return to ED if feel worse. Prescriptions: Fluticasone Nasal [Flonase] 1 spr NS BID #1 spr Ibuprofen [Motrin Tab] 600 mg PO Q8 #30 tab Benzonatate [Tessalon Perles] 2 tab PO TID #60 sgl Azithromycin [Zithromax] 250 mg PO DAILY #4 tab Instructions: Acute Bronchitis, Upper Respiratory Infection (ED) Forms: [facility] (Lao), Work Excuse - Clinical Impression Clinical Impression: Bronchitis, URI (upper respiratory infection) - PA / OSTEOPATHIC RESIDENT / Resident Statement MD/DO has reviewed & agrees with the documentation as recorded. - Scribe Statement The provider has reviewed the documentation as recorded by the Scribe (Oanh Matta) All medical record entries made by the Scribe were at my direction and personally dictated by me. I have reviewed the chart and agree that the record accurately reflects my personal performance of the history, physical exam, medical decision making, and the department course for this patient. I have also personally directed, reviewed, and agree with the discharge instructions and disposition.
--- NOTE | 2017-12-24 08:18 | RAD ---
Date of service: 12/23/2017 HISTORY: cough COMPARISON: Chest radiographs 07/13/2015. TECHNIQUE: Chest PA and lateral FINDINGS: LUNGS: No active pulmonary disease. PLEURA: No significant pleural effusion identified. No pneumothorax apparent. CARDIOVASCULAR: Normal. OSSEOUS STRUCTURES: No significant abnormalities. VISUALIZED UPPER ABDOMEN: Normal. OTHER FINDINGS: None. IMPRESSION: No interval acute cardiopulmonary disease appreciated.
== END 2017-12-23 20:04 | disposition home or self-care (01) ==
LOC: C.ER 18:20
DX: J40 Bronchitis, not specified as acute or chronic (principal); J06.9 Acute upper respiratory infection, unspecified

== ENCOUNTER 2018-03-22 17:15 | Emergency (ER) | payer MEDICAID ==
[2018-03-22] MEDS ORDERED: Sodium Chloride 0.9% 1,000 ML IV ONE (19:58)
[2018-03-22] MEDS ORDERED: Sodium Chloride 0.9% 1,000 ML ONE (20:21)
[2018-03-22 20:22] LABS: BASO % 0.2 % (0.0-2.0); EOS # 0.1 K/uL (0.0-0.7); EOS % 0.9 % (0.0-4.0); HEMOGLOBIN 10.8 g/dL (11.0-16.0); LYMPH # 0.6 K/uL (1.0-4.3); LYMPH % 5.7 % (20.0-40.0); MEAN CELL VOLUME 70.3 fL (81.0-99.0); MEAN CORPUSCULAR HEMOGLOBIN 22.4 pg (27.0-31.0); MEAN CORPUSCULAR HGB CONC 31.8 g/dL (33.0-37.0); MEAN PLATELET VOLUME 10.4 fL (7.2-11.7); MONO # 0.5 K/uL (0.0-0.8); MONO % 5.5 % (0.0-10.0); NEUT # 8.7 K/uL (1.8-7.0); NEUT % 87.7 % (50.0-75.0); PLATELET COUNT 169 K/uL (130-400); RBC 4.85 Mil/uL (3.80-5.20); RED CELL DISTRIBUTION WIDTH 16.5 % (11.5-14.5); WHITE BLOOD COUNT 9.9 K/uL (4.8-10.8)
[2018-03-22 20:31] LABS: HCG,QUALITATIVE URINE NEGATIVE (NEGATIVE)
[2018-03-22 20:35] LABS: SQUAMOUS EPITHIAL 3 /hpf (0-5); URINE BACTERIA FEW (<OCC); URINE BILIRUBIN NEGATIVE (NEGATIVE); URINE BLOOD NEGATIVE (NEGATIVE); URINE CLARITY Hazy (Clear); URINE COLOR Yellow (YELLOW); URINE GLUCOSE (UA) NORMAL (Normal); URINE LEUKOCYTE ESTERASE 3+ Leu/uL (Negative); URINE PROTEIN NEGATIVE (NEGATIVE)
[2018-03-22 20:49] LABS: EOSINOPHIL 1 % (0-4); LYMPHOCYTE 5 % (20-40); MONOCYTE 3 % (0-10); NEUTROPHIL 91 % (50-75); TOTAL CELLS COUNTED 100
[2018-03-22 20:50] LABS: ANISOCYTOSIS SLIGHT; HYPOCHROMIC SLIGHT; MICROCYTOSIS SLIGHT; OVALOCYTES SLIGHT; PLATELET ESTIMATE NORMAL (NORMAL)
[2018-03-22 21:22] LABS: BLOOD UREA NITROGEN 16 mg/dL (7-17); CALCIUM 9.3 mg/dl (8.6-10.4); GFR NON-AFRICAN AMERICAN > 60; LIPASE 80 U/L (23-300)
[2018-03-22 21:27] LABS: ALB/GLOB RATIO 1.3 (1.0-2.1); ALBUMIN 4.9 g/dL (3.5-5.0); ALT/SGPT 7 U/L (9-52); AST/SGOT 47 U/L (14-36)
--- NOTE | 2018-03-22 22:00 | C.PDOC ---
History Of Present Illness 23 year old female presets to the ED c/o abdominal pain associated with vomit and diarrhea for the past 2 days. Patient reports her symptoms are also associated with subjective fever and body aches. Patient denies rash, SOB, headache, GI bleed, dysuria, hematuria, recent travel, sick contacts. Time Seen by Provider: 03/22/18 19:47 Chief Complaint (Nursing): Abdominal Pain History Per: Patient History/Exam Limitations: no limitations Onset/Duration Of Symptoms: Days (2) Current Symptoms Are (Timing): Still Present Location Of Pain/Discomfort: Diffuse Radiation Of Pain To:: None Quality Of Discomfort: "Pain" Associated Symptoms: Fever, Vomiting, Diarrhea. denies: Urinary Symptoms Recent travel outside of the [place]: No Additional History Per: Patient Abnormal Vaginal Bleeding: No Past Medical History Reviewed: Historical Data, Nursing Documentation, Vital Signs Vital Signs: Last Vital Signs Temp 98.3 F 03/22/18 17:50 Pulse 72 03/22/18 17:50 Resp 16 03/22/18 17:50 BP 115/83 03/22/18 17:50 Pulse Ox 98 03/22/18 17:50 - Medical History PMH: Anemia, Asthma, Pancreatitis Denies: HTN, Hypercholesterolemia, Chronic Kidney Disease Surgical History: No Surg Hx - [facility] Procedures APPLICATION OF SPLINT (09/06/14) Family History: States: Diabetes - Social History Hx Tobacco Use: Yes Hx Alcohol Use: Yes Hx Substance Use: No - Immunization History Hx Tetanus Toxoid Vaccination: No Hx Influenza Vaccination: Yes Hx Pneumococcal Vaccination: No Review Of Systems Constitutional: Positive for: Fever, Malaise. Negative for: Chills Cardiovascular: Negative for: Chest Pain Respiratory: Negative for: Cough, Shortness of Breath Gastrointestinal: Positive for: Vomiting, Abdominal Pain, Diarrhea Genitourinary: Negative for: Dysuria Musculoskeletal: Negative for: Back Pain Skin: Negative for: Rash Neurological: Negative for: Weakness, Numbness, Headache, Dizziness Physical Exam - Physical Exam Appears: Non-toxic, No Acute Distress Skin: Normal Color, Warm, Dry, No Rash Head: Atraumatic, Normacephalic Eye(s): bilateral: Normal Inspection Oral Mucosa: Moist Neck: Normal ROM, Supple Chest: Symmetrical Cardiovascular: Rhythm Regular, No Friction Rub, No Murmur Respiratory: Normal Breath Sounds, No Rales, No Rhonchi, No Wheezing Gastrointestinal/Abdominal: Soft, No Tenderness, No Guarding, No Rebound Back: Normal Inspection, No CVA Tenderness Extremity: Normal ROM, No Tenderness, No Swelling Neurological/Psych: Oriented x3, Normal Speech, Normal Cognition, Normal Motor Gait: Steady ED Course And Treatment - Laboratory Results Result Diagrams: 03/22/18 20:15 03/22/18 20:54 O2 Sat by Pulse Oximetry: 98 (ON RA) Pulse Ox Interpretation: Normal Medical Decision Making Medical Decision Making: Plan: * Labs * Pepcid 20 mg IVP * IV fluids * Zofran 4 mg IVP * UA Disposition - Disposition Referrals: Shaik Cerrato MD [Staff Provider] - Disposition: HOME/ ROUTINE Disposition Time: 22:03 Condition: STABLE Additional Instructions: Follow up with the medical doctor within 1-2 days. Return if worsened, Prescriptions: Famotidine [Pepcid] 20 mg PO BID #20 tab Ondansetron ODT [Zofran ODT] 1 odt PO BID PRN #6 odt PRN Reason: Nausea/Vomiting Instructions: Gastritis (DC), Viral Syndrome (DC) Forms: [facility] (Armenian) - Clinical Impression Clinical Impression: Acute viral syndrome, Gastritis - PA / NIGHT WAREHOUSE MANAGER / Resident Statement MD/DO has reviewed & agrees with the documentation as recorded. - Scribe Statement The provider has reviewed the documentation as recorded by the Scribe Dandre Rajput All medical record entries made by the Scribe were at my direction and personally dictated by me. I have reviewed the chart and agree that the record accurately reflects my personal performance of the history, physical exam, medical decision making, and the department course for this patient. I have also personally directed, reviewed, and agree with the discharge instructions and disposition.
[2018-03-22 22:06] VITALS: BP 110/71; PULSE 70; RESP 18; TEMP 98
[2018-03-22 22:08] VITALS: O2SAT 98
== END 2018-03-22 22:19 | disposition home or self-care (01) ==
LOC: C.ER 17:15
DX: K29.70 Gastritis, unspecified, without bleeding (principal); B34.9 Viral infection, unspecified
CPT/HCPCS: 80053; 81001; 83690; 84703; 85025; 96361; 96374; 96375; 99284; J2405; J7030

== ENCOUNTER 2018-06-30 13:40 | Emergency (ER) | payer MEDICAID ==
[2018-06-30 14:42] LABS: HCG,QUALITATIVE URINE NEGATIVE (NEGATIVE)
[2018-06-30 14:46] LABS: SQUAMOUS EPITHIAL 33 /hpf (0-5); URINE BILIRUBIN NEGATIVE (NEGATIVE); URINE BLOOD 3+ (NEGATIVE); URINE CLARITY Hazy (Clear); URINE GLUCOSE (UA) NORMAL (Normal); URINE LEUKOCYTE ESTERASE TRACE Leu/uL (Negative); URINE PROTEIN 1+ mg/dL (NEGATIVE); URINE UROBILINOGEN NORMAL mg/dL (0.2-1.0)
[2018-06-30 14:47] LABS: URINE COLOR BROWN (YELLOW)
--- NOTE | 2018-06-30 14:51 | RAD ---
HISTORY: cough COMPARISON: Chest x-ray performed 12/23/17 TECHNIQUE: Chest PA and lateral FINDINGS: LUNGS: No focal consolidation. Please note that chest x-ray has limited sensitivity for the detection of pulmonary masses. PLEURA: No significant pleural effusion identified. No definite pneumothorax . CARDIOVASCULAR: The cardiomediastinal silhouette appears within normal limits of size. No atherosclerotic calcification present. OSSEOUS STRUCTURES: No acute osseous abnormality identified. VISUALIZED UPPER ABDOMEN: Elevation/eventration of the right hemidiaphragm. OTHER FINDINGS: None. IMPRESSION: No focal consolidation.
--- NOTE | 2018-06-30 15:02 | C.PDOC ---
History Of Present Illness 23 y/o female presents to the ED complaining of cough and congestion for the past 2 weeks. States she was seen by PMD Dr. Hassan who did not do a swab, but treated her for flu. Patient reports completing those medications without improvement. She notes the cough is now productive of green sputum. Associated with headache and body aches. Otherwise patient denies any nausea, vomiting, diarrhea, fevers, chills, chest pain, or SOB. Time Seen by Provider: 06/30/18 14:00 Chief Complaint (Nursing): Flu-like Symptoms History Per: Patient History/Exam Limitations: no limitations Onset/Duration Of Symptoms: Days Current Symptoms Are (Timing): Still Present Associated Symptoms: Cough, Sputum, Nasal Congestion Past Medical History Reviewed: Historical Data, Nursing Documentation, Vital Signs Vital Signs: Last Vital Signs Temp 98.9 F 06/30/18 13:56 Pulse 72 06/30/18 13:56 Resp 18 06/30/18 13:56 BP 120/86 06/30/18 13:56 Pulse Ox 97 06/30/18 13:56 - Medical History PMH: Anemia, Asthma, Pancreatitis Denies: HTN, Hypercholesterolemia, Chronic Kidney Disease Other Surgeries: Gastric bypass surgery - [facility] Procedures APPLICATION OF SPLINT (09/06/14) Family History: States: Diabetes - Social History Hx Tobacco Use: Yes Hx Alcohol Use: Yes Hx Substance Use: No - Immunization History Hx Tetanus Toxoid Vaccination: No Hx Influenza Vaccination: Yes Hx Pneumococcal Vaccination: Yes Review Of Systems Except As Marked, All Systems Reviewed And Found Negative. Constitutional: Negative for: Fever, Chills ENT: Positive for: Nose Congestion Cardiovascular: Negative for: Chest Pain Respiratory: Positive for: Cough, Sputum (green). Negative for: Shortness of Breath Gastrointestinal: Negative for: Nausea, Vomiting, Abdominal Pain, Diarrhea Musculoskeletal: Negative for: Back Pain Neurological: Negative for: Weakness, Dizziness Physical Exam - Physical Exam Appears: Well, Non-toxic, No Acute Distress Skin: Warm, Dry Head: Atraumatic, Normacephalic Eye(s): bilateral: Normal Inspection, PERRL, EOMI Ear(s): Bilateral: Normal Oral Mucosa: Moist Throat: Normal (pharynx is clear), No Erythema, No Exudate Neck: Normal ROM, Supple Chest: Symmetrical Cardiovascular: Rhythm Regular, No Murmur Respiratory: Normal Breath Sounds, No Rales, No Rhonchi, No Wheezing Extremity: Bilateral: Atraumatic, Normal Color And Temperature, Normal ROM Neurological/Psych: Oriented x3, Normal Speech ED Course And Treatment - Laboratory Results Lab Results: Urine Color Brown (YELLOW) 06/30/18 14:37 Urine Clarity Hazy (Clear) 06/30/18 14:37 Urine pH 5.0 (5.0-8.0) 06/30/18 14:37 Ur Specific [place] 1.016 (1.003-1.030) 06/30/18 14:37 Urine Protein 1+ mg/dL (NEGATIVE) H 06/30/18 14:37 Urine Glucose (UA) Normal mg/dL (Normal) 06/30/18 14:37 Urine Ketones Negative mg/dL (NEGATIVE) 06/30/18 14:37 Urine Blood 3+ (NEGATIVE) H 06/30/18 14:37 Urine Nitrate Negative (NEGATIVE) 06/30/18 14:37 Urine Bilirubin Negative (NEGATIVE) 06/30/18 14:37 Urine Urobilinogen Normal mg/dL (0.2-1.0) 06/30/18 14:37 Ur Leukocyte Esterase Trace Carlos/uL (Negative) 06/30/18 14:37 Urine WBC (Auto) 4 /hpf (0-5) 06/30/18 14:37 Urine RBC (Auto) 2678 /hpf (0-3) H 06/30/18 14:37 Ur Squamous Epith Cells 33 /hpf (0-5) H 06/30/18 14:37 Urine HCG, Qual Negative (NEGATIVE) 06/30/18 14:37 Urine HCG, Qual Negative (NEGATIVE) 06/30/18 14:37 O2 Sat by Pulse Oximetry: 97 (on RA) Pulse Ox Interpretation: Normal - Other Rad CXR X-Ray: Read By Radiologist Interpretation: Accession No. : [id number]. Patient Name / ID : CATHLEEN KHAN / [id number]. Exam Date : 06/30/2018 14:34:08 ( Approved ). Study Comment : Sex / Age : F / 23Y. Creator : Miya Restrepo MD. Dictator : Miya Restrepo MD. President Sales And Marketing : [employer] : Miya Restrepo MD. Approver2 : Report Date : 06/30/2018 14:47:32. My Comment : . HISTORY: cough. COMPARISON: Chest x-ray performed 12/23/17. TECHNIQUE: Chest PA and lateral. FINDINGS: LUNGS: No focal consolidation. Please note that chest x-ray has limited sensitivity for the detection of pulmonary masses. PLEURA: No significant pleural effusion identified. No definite pneumothorax . CARDIOVASCULAR: The cardiomediastinal silhouette appears within normal limits of size. No atherosclerotic calcification present. OSSEOUS STRUCTURES: No acute osseous abnormality identified. VISUALIZED UPPER ABDOMEN: Elevation/eventration of the right hemidiaphragm. OTHER FINDINGS: None. IMPRESSION: No focal consolidation. Progress Note: Urine sent to the lab for analysis. CXR obtained and reviewed, no acute disease. UA shows trace leuks, +RBC. Disposition - Disposition Referrals: Shaik Cerrato MD [Staff Provider] - Disposition: HOME/ ROUTINE Disposition Time: 15:10 Condition: STABLE Additional Instructions: Follow up with your PMD within 1-2 days. Return to ED if feel worse. Prescriptions: Brompheniramine/Pseudoephed/Dm [Bromfed Dm Cough 118 ml] 10 ml PO Q4 #300 ml Ibuprofen [Motrin Tab] 400 mg PO Q8 #30 tab Azithromycin [Zithromax] 250 mg PO DAILY #4 tab Instructions: Acute Bronchitis Forms: [facility] (Cook Islander) - Clinical Impression Clinical Impression: Bronchitis - PA / STOCK HANDLER / Resident Statement MD/DO has reviewed & agrees with the documentation as recorded. - Scribe Statement The provider has reviewed the documentation as recorded by the Scribyumiko Seay All medical record entries made by the Scribe were at my direction and personally dictated by me. I have reviewed the chart and agree that the record accurately reflects my personal performance of the history, physical exam, medical decision making, and the department course for this patient. I have also personally directed, reviewed, and agree with the discharge instructions and disposition.
[2018-06-30 15:30] VITALS: BP 117/77; PULSE 67; RESP 19; TEMP 98.1
[2018-06-30 21:50] VITALS: O2SAT 97
== END 2018-06-30 15:30 | disposition home or self-care (01) ==
LOC: C.ER 13:40
DX: J40 Bronchitis, not specified as acute or chronic (principal)

== ENCOUNTER 2018-07-15 12:50 | Emergency (ER) | payer MEDICAID ==
[2018-07-15 12:55] VITALS: O2SAT 100
[2018-07-15] MEDS ORDERED: Sodium Chloride 0.9% 1,000 ML IV ONE (13:57)
[2018-07-15] MEDS ORDERED: Sodium Chloride 0.9% 1,000 ML ONE (14:16)
[2018-07-15 14:42] LABS: BASO # 0.1 K/uL (0.0-0.2); BASO % 0.9 % (0.0-2.0); EOS # 0.2 K/uL (0.0-0.7); HEMOGLOBIN 10.7 g/dL (11.0-16.0); LYMPH % 34.2 % (20.0-40.0); MEAN CELL VOLUME 70.7 fL (81.0-99.0); MEAN CORPUSCULAR HEMOGLOBIN 21.9 pg (27.0-31.0); MEAN CORPUSCULAR HGB CONC 30.9 g/dL (33.0-37.0); MEAN PLATELET VOLUME 10.1 fL (7.2-11.7); MONO # 0.8 K/uL (0.0-0.8); NEUT # 4.7 K/uL (1.8-7.0); NEUT % 53.9 % (50.0-75.0); RBC 4.88 Mil/uL (3.80-5.20); RED CELL DISTRIBUTION WIDTH 16.7 % (11.5-14.5); WHITE BLOOD COUNT 8.7 K/uL (4.8-10.8)
[2018-07-15 14:50] LABS: INR 1.1; PROTHROMBIN TIME 11.7 SECONDS (9.7-12.2)
[2018-07-15 14:53] LABS: HCG,QUALITATIVE URINE NEGATIVE (NEGATIVE)
[2018-07-15 14:55] LABS: SQUAMOUS EPITHIAL 11 /hpf (0-5); URINE BACTERIA RARE (<OCC); URINE BILIRUBIN NEGATIVE (NEGATIVE); URINE BLOOD NEGATIVE (NEGATIVE); URINE CLARITY Hazy (Clear); URINE COLOR Yellow (YELLOW); URINE GLUCOSE (UA) NORMAL (Normal); URINE LEUKOCYTE ESTERASE 2+ Leu/uL (Negative); URINE PROTEIN NEGATIVE (NEGATIVE); URINE UROBILINOGEN NORMAL mg/dL (0.2-1.0)
[2018-07-15 15:00] LABS: ALB/GLOB RATIO 1.4 (1.0-2.1); ALBUMIN 4.6 g/dL (3.5-5.0); ALT/SGPT 13 U/L (9-52); AST/SGOT 20 U/L (14-36); BLOOD UREA NITROGEN 11 mg/dL (7-17); CALCIUM 10.1 mg/dl (8.6-10.4); GFR NON-AFRICAN AMERICAN > 60
[2018-07-15 15:18] VITALS: RESP 17
--- NOTE | 2018-07-15 15:23 | RAD ---
HISTORY: cough, fever COMPARISON: Chest x-ray performed 06/30/18 TECHNIQUE: Chest PA and lateral, 2 views FINDINGS: LUNGS: No focal consolidation. Please note that chest x-ray has limited sensitivity for the detection of pulmonary masses. PLEURA: No significant pleural effusion identified. No definite pneumothorax . CARDIOVASCULAR: The cardiomediastinal silhouette appears within normal limits of size. No atherosclerotic calcification present. OSSEOUS STRUCTURES: No acute osseous abnormality identified. VISUALIZED UPPER ABDOMEN: Unremarkable. OTHER FINDINGS: None. IMPRESSION: No acute findings identified.
--- NOTE | 2018-07-15 16:19 | C.PDOC ---
History Of Present Illness Patient is a 23 year old female who presents to the ED c/o 2 to 3 weeks of abdominal pain with associated vomiting, diarrhea, intermittent fevers, and cough. Patient also reports she developed a intermittent rash on her back that has been present for the past 2 weeks. She states that she was seen by her PMD and given antibiotics, cough medicine, and tamiflu, which she has finished but still presents with symptoms. She denies any CP, SOB, numbness, weakness, or recent travel. Time Seen by Provider: 07/15/18 13:22 Chief Complaint (Nursing): Abdominal Pain History Per: Patient History/Exam Limitations: no limitations Onset/Duration Of Symptoms: Other (2 to 3 weeks) Current Symptoms Are (Timing): Still Present Quality Of Discomfort: "Pain" Associated Symptoms: Fever, Vomiting, Diarrhea Recent travel outside of the [place]: No Additional History Per: Patient Past Medical History Reviewed: Historical Data, Nursing Documentation, Vital Signs Vital Signs: Last Vital Signs Temp 98.7 F 07/15/18 15:16 Pulse 58 L 07/15/18 15:16 Resp 17 07/15/18 15:16 BP 100/61 07/15/18 15:16 Pulse Ox 100 07/15/18 15:16 - Medical History PMH: Anemia, Asthma, Pancreatitis Denies: HTN, Hypercholesterolemia, Chronic Kidney Disease Surgical History: No Surg Hx - [facility] Procedures APPLICATION OF SPLINT (09/06/14) Family History: States: Unknown Family Hx, Diabetes - Social History Hx Tobacco Use: Yes Hx Alcohol Use: Yes Hx Substance Use: No - Immunization History Hx Tetanus Toxoid Vaccination: No Hx Influenza Vaccination: Yes Hx Pneumococcal Vaccination: Yes Review Of Systems Except As Marked, All Systems Reviewed And Found Negative. Constitutional: Positive for: Fever Cardiovascular: Negative for: Chest Pain Respiratory: Positive for: Cough. Negative for: Shortness of Breath Gastrointestinal: Positive for: Vomiting, Abdominal Pain, Diarrhea Skin: Positive for: Rash Neurological: Negative for: Weakness, Numbness Physical Exam - Physical Exam Appears: Non-toxic, No Acute Distress Skin: Normal Color, Warm, Dry, No Rash, No Other (erythema) Head: Atraumatic, Normacephalic Oral Mucosa: Moist Neck: Normal ROM, Supple Chest: Symmetrical, No Deformity Cardiovascular: Rhythm Regular, No Murmur Respiratory: Normal Breath Sounds, No Rales, No Rhonchi, No Wheezing Gastrointestinal/Abdominal: Soft, No Tenderness, No Distention, No Guarding, No Rebound Extremity: Normal ROM Neurological/Psych: Oriented x3, Normal Speech, Normal Cognition ED Course And Treatment - Laboratory Results Result Diagrams: 07/15/18 14:35 07/15/18 14:35 Lab Results: PT 11.7 SECONDS (9.7-12.2) 07/15/18 14:35 INR 1.1 07/15/18 14:35 APTT 39 SECONDS (21-34) H 07/15/18 14:35 Total Bilirubin 0.7 mg/dL (0.2-1.3) 07/15/18 14:35 AST 20 U/L (14-36) 07/15/18 14:35 ALT 13 U/L (9-52) 07/15/18 14:35 Alkaline Phosphatase 50 U/L (38-126) 07/15/18 14:35 Total Protein 7.9 g/dL (6.3-8.3) 07/15/18 14:35 Albumin 4.6 g/dL (3.5-5.0) 07/15/18 14:35 Globulin 3.3 gm/dL (2.2-3.9) 07/15/18 14:35 Albumin/Globulin Ratio 1.4 (1.0-2.1) 07/15/18 14:35 Urine Color Yellow (YELLOW) 07/15/18 14:35 Urine Clarity Hazy (Clear) 07/15/18 14:35 Urine pH 7.0 (5.0-8.0) 07/15/18 14:35 Ur Specific [place] 1.010 (1.003-1.030) 07/15/18 14:35 Urine Protein Negative mg/dL (NEGATIVE) 07/15/18 14:35 Urine Glucose (UA) Normal mg/dL (Normal) 07/15/18 14:35 Urine Ketones Negative mg/dL (NEGATIVE) 07/15/18 14:35 Urine Blood Negative (NEGATIVE) 07/15/18 14:35 Urine Nitrate Negative (NEGATIVE) 07/15/18 14:35 Urine Bilirubin Negative (NEGATIVE) 07/15/18 14:35 Urine Urobilinogen Normal mg/dL (0.2-1.0) 07/15/18 14:35 Ur Leukocyte Esterase 2+ Carlos/uL (Negative) H 07/15/18 14:35 Urine WBC (Auto) 2 /hpf (0-5) 07/15/18 14:35 Urine RBC (Auto) 1 /hpf (0-3) 07/15/18 14:35 Ur Squamous Epith Cells 11 /hpf (0-5) H 07/15/18 14:35 Urine Bacteria Rare (<OCC) 07/15/18 14:35 Urine HCG, Qual Negative (NEGATIVE) 07/15/18 14:35 Urine HCG, Qual Negative (NEGATIVE) 07/15/18 14:35 O2 Sat by Pulse Oximetry: 100 (on RA) Pulse Ox Interpretation: Normal - Other Rad CXR X-Ray: Viewed By Me, Read By Radiologist Interpretation: HISTORY: cough, fever. COMPARISON: Chest x-ray performed 06/30/18. TECHNIQUE: Chest PA and lateral, 2 views. FINDINGS: LUNGS: No focal consolidation. Please note that chest x-ray has limited sensitivity for the detection of pulmonary masses. PLEURA: No significant pleural effusion identified. No definite pneumothorax . CARDIOVASCULAR: The cardiomediastinal silhouette appears within normal limits of size. No atherosclerotic calcification present. OSSEOUS STRUCTURES: No acute osseous abnormality identified. VISUALIZED UPPER ABDOMEN: Unremarkable. OTHER FINDINGS: None. IMPRESSION: No acute findings identified. Medical Decision Making Medical Decision Making: Plan: Labs CXR IV Fluids Serology Influenza Urine Culture Urinalysis Disposition - Disposition Referrals: Shaik Cerrato MD [Staff Provider] - Disposition: HOME/ ROUTINE Disposition Time: 16:17 Condition: GOOD Additional Instructions: Follow up with the medical doctor within 1-2 days., Return if worsened/ Prescriptions: Loratadine/Pseudoephedrine [Loratadine-D 24Hr Tablet] 1 each PO DAILY #10 tab.er.24h predniSONE [Prednisone] 20 mg PO BID #10 tab Instructions: Acute Bronchitis, Viral Exanthem (DC) Forms: [facility] (Irish), Work Excuse - Clinical Impression Clinical Impression: Viral exanthem, Bronchitis - PA / GANG WORKER / Resident Statement MD/DO has examined the patient and agrees with the treatment plan. - Scribe Statement The provider has reviewed the documentation as recorded by the Robson Mercado All medical record entries made by the Scribe were at my direction and personally dictated by me. I have reviewed the chart and agree that the record accurately reflects my personal performance of the history, physical exam, medical decision making, and the department course for this patient. I have also personally directed, reviewed, and agree with the discharge instructions and disposition.
[2018-07-15 16:36] VITALS: BP 126/78; PULSE 54; TEMP 98
== END 2018-07-15 16:47 | disposition home or self-care (01) ==
LOC: C.ER 12:50
DX: J40 Bronchitis, not specified as acute or chronic (principal); B09 Unspecified viral infection characterized by skin and mucous membrane lesions; Z72.0 Tobacco use
CPT/HCPCS: 71046; 80053; 81001; 84703; 85025; 85610; 85730; 86140; 87086; 87804; 96360; 99285; J7030